=== PATIENT | female | born 1985 | race Asian ===

== ENCOUNTER 2017-07-09 12:27 | Emergency (ER) | payer BC ==
[~2017-07-09] VITALS: Ht 160 cm; Wt 53.5 kg
[2017-07-09 12:34] VITALS: Ht 160 cm; Wt 53.5 kg
[2017-07-09 14:40] VITALS: BP 111/87
== END 2017-07-09 14:40 | disposition home or self-care (01) ==
LOC: ED 12:27
DX: M25.571 Pain in right ankle and joints of right foot (principal)